=== PATIENT | male | born 1940 | race Caucasian/White ===

== ENCOUNTER 2016-05-05 09:34 | Day surgery (SDC) | payer OTHER, MEDICARE ==
[~2016-05-05] VITALS: Ht 180.3 cm; Wt 107.1 kg
[~2016-05-05 09:34] MED LIST: AURYXIA PO; DILTIAZEM 24HR120 MG PO; FENOFIBRATE145 M1 PO; FENOFIBRATE160 M1 PO; FUROSEMIDE40 MG PO; FUROSEMIDE80 MG PO; HUMULIN N100 UNITS/ SC; IMDUR120 MG PO; LIPITOR20 MG PO; LIPITOR40 MG PO; LO-DOSE ASPIRIN81 M1 PO; METOPROLOL TART25 MG PO; METOPROLOL TART50 MG PO; NEURONTIN300 MG PO; NOVOLIN N100 UNITS/ SC; NOVOLOG 10100 UNITS/ SC; PLAVIX75 MG PO; RENAL CAPS SOFTG1 MG PO; RENVELA800 MG PO; SERTRALINE HCL100 MG PO; SERTRALINE HCL50 MG PO; VITAMIN D5000 UNIT PO
[2016-05-05 10:29] LABS: POINT-OF-CARE METER ID UU13113696
[2016-05-05 11:31] LABS: POINT-OF-CARE METER ID UU13113696
[2016-05-05 11:56] LABS: METH RESISTANT S AUREUS PCR NEGATIVE (NEGATIVE)
[2016-05-05 11:58] LABS: PROBE CHECK PASS; SPECIMEN PROCESSING CONTROL PASS
== END 2016-05-05 13:30 | disposition home or self-care (01) ==
LOC: CATH 09:34
PROVIDERS: Surgery
DX: T82.858A Stenosis of other vascular prosthetic devices, implants and grafts, initial encounter (principal); Y83.2 Surgical operation with anastomosis, bypass or graft as the cause of abnormal reaction of the patient, or of later complication, without mention of misadventure at the time of the procedure; Z99.2 Dependence on renal dialysis; I12.0 Hypertensive chronic kidney disease with stage 5 chronic kidney disease or end stage renal disease; E11.22 Type 2 diabetes mellitus with diabetic chronic kidney disease; N18.6 End stage renal disease
CPT/HCPCS: 82948; 87641; C1725; C1769; C1894; J1644; J2250; J3010

== ENCOUNTER 2016-08-05 15:11 | Day surgery (SDC) | payer OTHER, MEDICARE ==
[2016-08-05 15:56] LABS: POINT-OF-CARE METER ID UU13113696
[2016-08-05 17:42] LABS: METH RESISTANT S AUREUS PCR NEGATIVE (NEGATIVE)
[2016-08-05 17:43] LABS: PROBE CHECK PASS; SPECIMEN PROCESSING CONTROL PASS
== END 2016-08-05 16:42 | disposition home or self-care (01) ==
LOC: CATH 15:11
PROVIDERS: Surgery
DX: T82.858A Stenosis of other vascular prosthetic devices, implants and grafts, initial encounter (principal); I12.0 Hypertensive chronic kidney disease with stage 5 chronic kidney disease or end stage renal disease; N18.6 End stage renal disease; Z99.2 Dependence on renal dialysis; E11.22 Type 2 diabetes mellitus with diabetic chronic kidney disease; E78.00 Pure hypercholesterolemia, unspecified; Z79.82 Long term (current) use of aspirin; Z79.4 Long term (current) use of insulin
CPT/HCPCS: 82948; 87641; C1725; C1769; C1894; J1200; J1644; J2250; J2765; J2930; J3010

== ENCOUNTER 2016-10-21 15:37 | Day surgery (SDC) | payer OTHER, MEDICARE ==
[~2016-10-21] VITALS: Ht 180.3 cm; Wt 107.1 kg
[2016-10-21 16:29] LABS: MCV 106.1 FL (86-99)
[2016-10-21 16:30] LABS: POINT-OF-CARE METER ID UU13113694
[2016-10-21 16:39] LABS: ANION GAP 10 MEQ/L (2-14); CHLORIDE 107 MEQ/L (99-109); POTASSIUM 5.9 MEQ/L (3.7-5.4); SAMPLE HEMOLYSIS CHECK 0; SAMPLE ICTERIC CHECK 0; SAMPLE LIPEMIA CHECK 0; SODIUM 142 MEQ/L (136-147)
[2016-10-21 16:44] LABS: GFR ESTIMATE (CALCULATED) 6 mL/min/; GLUCOSE 94 mg/dL (70-99); UREA NITROGEN (BUN) 69 mg/dL (9-23)
[2016-10-21 16:46] VITALS: BP 171/81
[2016-10-21 18:04] LABS: METH RESISTANT S AUREUS PCR NEGATIVE (NEGATIVE)
[2016-10-21 18:18] LABS: POINT-OF-CARE METER ID UU13113694
[2016-10-21 18:26] LABS: PROBE CHECK PASS; SPECIMEN PROCESSING CONTROL PASS
[2016-10-21 19:32] LABS: POINT-OF-CARE METER ID UU13113694
[2016-10-21] MEDS ORDERED: NORCO 5/3251 TABLET PO (22:27)
[2016-10-21 22:29] LABS: POINT-OF-CARE METER ID UU13113675
[2016-10-21 23:10] VITALS: BP 151/71
[2016-10-22] VITALS: BP 164/72
== END 2016-10-22 00:30 | disposition home or self-care (01) ==
LOC: SDC 15:37 → ENRESERV 22:27 → 2SOUTH 22:28 → ENRESERV 22:43 → 2EAST 22:51
PROVIDERS: Surgery
DX: T82.868A Thrombosis due to vascular prosthetic devices, implants and grafts, initial encounter (principal); I12.0 Hypertensive chronic kidney disease with stage 5 chronic kidney disease or end stage renal disease; E11.22 Type 2 diabetes mellitus with diabetic chronic kidney disease; N18.6 End stage renal disease; Z99.2 Dependence on renal dialysis; I25.2 Old myocardial infarction; Z79.82 Long term (current) use of aspirin; Z79.4 Long term (current) use of insulin
CPT/HCPCS: 80048; 82948; 85014; 85018; 87641; 93005; C1757; C1769; C1874; C1894; C2628; G0378; J0690; J1644; J3010

== ENCOUNTER 2017-07-27 07:15 | Day surgery (SDC) | payer OTHER, MEDICARE ==
[~2017-07-27] VITALS: Ht 180.3 cm; Wt 108.4 kg
[~2017-07-27 07:15] MED LIST changes: +NORCO 5/3251 TABLET PO; +PROZAC20 MG PO
== END 2017-07-27 09:15 | disposition home or self-care (01) ==
LOC: CATH 07:15
PROVIDERS: Surgery
PROC: 057Y3ZZ Dilation of Upper Vein, Percutaneous Approach (ICD-10-PCS; principal; 2017-07-27)
DX: T82.858A Stenosis of other vascular prosthetic devices, implants and grafts, initial encounter (principal); Y83.2 Surgical operation with anastomosis, bypass or graft as the cause of abnormal reaction of the patient, or of later complication, without mention of misadventure at the time of the procedure; I12.0 Hypertensive chronic kidney disease with stage 5 chronic kidney disease or end stage renal disease; E11.22 Type 2 diabetes mellitus with diabetic chronic kidney disease; N18.6 End stage renal disease; D63.1 Anemia in chronic kidney disease; I25.10 Atherosclerotic heart disease of native coronary artery without angina pectoris; E78.00 Pure hypercholesterolemia, unspecified; Z99.2 Dependence on renal dialysis; Z79.4 Long term (current) use of insulin; Z95.1 Presence of aortocoronary bypass graft; Z79.82 Long term (current) use of aspirin
CPT/HCPCS: 82948; 87641; C1725; C1769; C1894; J1644; J2250